=== PATIENT | female | born 1975 | race Caucasian/White ===

== ENCOUNTER 2020-12-17 13:32 | Emergency (ER) | payer OTHER, SELFPAY ==
--- NOTE | ~2020-12-17 | XR_ITS ---
EXAMINATION: XR foot RT min 3V DATE: 12/17/2020 13:48 INDICATION: Right foot pain, initial encounter TECHNIQUE: Dorsoplantar, lateral, and 2 oblique views of the right foot were obtained. COMPARISON: None. FINDINGS: There is an acute, traumatic, closed, oblique shaft fracture of the mid/distal fifth metata rsal. Soft tissue swelling is seen near the fracture. The joint spaces are normal. No additional acut e osseous findings are evident. Dorsal and plantar calcaneal enthesophytes are noted. IMPRESSION: 1. Acute shaft fracture of the fifth metatarsal. Reviewed, dictated and finalized at location A.
--- NOTE | ~2020-12-17 | XR_ITS ---
EXAMINATION: XR ankle RT min 3V INDICATION: Right ankle pain TECHNIQUE: Four views of the right ankle are obtained. COMPARISON: None available FINDINGS: There is an oblique shaft fracture of the fifth metatarsal described on the foot radiograph s. There is no fracture, dislocation, or subluxation of the ankle. Ankle alignment is normal. The ank le soft tissues are unremarkable. Dorsal and plantar calcaneal enthesophytes are noted. IMPRESSION: 1. No acute osseous abnormality of the ankle. Reviewed, dictated and finalized at location A.
[2020-12-17 13:35] VITALS: BP 138/90; PULSE 94; RESP 20; TEMP 36.6; O2SAT 100
--- NOTE | 2020-12-17 14:46 | PC.NURSE ---
Pt declined crutches. States she will get some at the drug store.
--- NOTE | 2020-12-17 15:01 | ED.GENADULT ---
HPI - General Adult General Chief complaint: Extremity Injury, Lower Stated complaint: right foot is broken Time Seen by Provider: 12/17/20 14:10 Source: patient, family and RN notes reviewed Mode of arrival: ambulatory Limitations: no limitations History of Present Illness HPI narrative: Patient is a 45-year-old female who presents with right foot pain that began in the middle the night patient got up at night notes that her legs were asleep when she woke and she struck the right foot injuring the right lateral forefoot patient has since had moderate aching pain worse with activity and movement patient denies other injuries or complaints and is otherwise in the room in no distress upon arrival has not taken anything for symptoms denies other injury or pain at this time Related Data Allergies Allergy/AdvReac Type Severity Reaction Status Date / Time No Known Allergies Allergy Verified 12/17/20 14:12 Review of Systems Review of Systems: All systems reviewed & are unremarkable except as noted in HPI and below PMFSH Social History Social History (Updated 12/17/20 @ 15:02 by Xavier Melendez PA-C) Smoking status: Never smoker Gender identity (if verbalized by the patient): Female Exam Narrative: Exam Narrative: GENERAL: Well-appearing, well-nourished, and in no acute distress. HEAD: Normocephalic, atraumatic. EYES: PERRLA and EOMI. ENT: Nares clear, no rhinorrhea or epistaxis. Mucous membranes moist. EXTREMITIES: Normal range of motion. No edema. Patient with bruising swelling and tenderness to the right lateral forefoot. Mild tenderness of the ankle no deformity SKIN: Warm, dry, no rash. NEURO: No focal deficits. Alert and oriented x3. Neurovascularly intact PSYCH: Normal mood and affect. Course Course Emergency Course: Patient in the room no distress aware of case findings treatment plan and diagnosis agreeing to follow-up as instructed or to return if symptoms worsen or concerns Vital Signs Vital signs: Vital Signs Temperature 97.9 F 12/17/20 13:35 Pulse Rate 94 12/17/20 13:35 Respiratory Rate 12/17/20 13:35 Blood Pressure 138/90 12/17/20 13:35 Pulse Oximetry 100 12/17/20 13:35 Temperature 97.9 F 12/17/20 13:35 Pulse Rate 94 12/17/20 13:35 Respiratory Rate 20 12/17/20 13:35 Blood Pressure 138/90 12/17/20 13:35 Pulse Oximetry 100 12/17/20 13:35 Medical Decision Making MDM Narrative Medical decision making narrative: Patients injury or pain is consistent with musculoskeletal etiology. No signs of neurological or vascular compromise on exam. Compartments and tisues are soft without signs of compartment syndrome. Pain is felt appropriate for further evaluation on an outpatient basis. Placed in [place] wrap and postop shoe offered crutches but refused Vital Signs Vital Signs: Vital Signs Temperature 97.9 F 12/17/20 13:35 Pulse Rate 94 12/17/20 13:35 Respiratory Rate 20 12/17/20 13:35 Blood Pressure 138/90 12/17/20 13:35 Pulse Oximetry 100 12/17/20 13:35 Temperature 97.9 F 12/17/20 13:35 Pulse Rate 94 12/17/20 13:35 Respiratory Rate 20 12/17/20 13:35 Blood Pressure 138/90 12/17/20 13:35 Pulse Oximetry 100 12/17/20 13:35 Imaging Data Radiologist's impression: ITS Impressions Ankle X-Ray 12/17/20 13:57 IMPRESSION: 1. No acute osseous abnormality of the ankle. Foot X-Ray 12/17/20 13:59 IMPRESSION: 1. Acute shaft fracture of the fifth metatarsal. Discharge Plan Discharge Clinical Impression: Metatarsal bone fracture Patient Disposition: Home, Self-Care Condition: Stable Instructions: Antibiotic Form, Foot Fracture in Adults (ED) Additional Instructions: Wear brace and use crutches. No weight on the affected leg until able to bear weight without pain. Ice and elevate extremity. Pain medication as needed and directed. Follow-up with orthopedist on Saturday to set up for reevaluation. Return i
== END 2020-12-17 15:21 | disposition home or self-care (01) ==
PROVIDERS: Emergency Provider Emergency Medicine; PCP Student in an Organized Health Care Education/Training Program
DX: S92.351A Displaced fracture of fifth metatarsal bone, right foot, initial encounter for closed fracture (principal); W22.8XXA Striking against or struck by other objects, initial encounter
CPT/HCPCS: 73610; 73630; 99284